=== PATIENT | male | born 1950 | race Caucasian/White ===

== ENCOUNTER 2019-12-18 05:27 | Emergency (ER) | payer MEDICARE, MEDICAID, SELFPAY ==
[2019-12-18 05:26] VITALS: BP 141/77; PULSE 74; RESP 16; TEMP 36.4; O2SAT 94; BMI 26.6
--- NOTE | 2019-12-18 05:40 | CT_ITS ---
PROCEDURE: CT ABDOMEN PELVIS W CON CLINICAL INDICATION: coffee ground emmisis COMPARISON: CT ABDPELW/O CT ABD PELVIS W/O CONTRAST from 09/06/2016 TECHNIQUE: IV Contrast: 75ML OPTIRAY 350 Oral Contrast None Axial images obtained with sagittal and coronal reformats. All CT scans at the facility use one or more dose reduction, viz: automated exposure control, ma/kV adjustment per patient size (including targeted exams where dose is matched to indication, i.e. head), or iterative reconstruction technique. FINDINGS: LOWER THORAX: There is a the 6 mm noncalcified nodule in the left lower lobe posterior laterally centrally. 6 mm nodule is present in the right lung base centrally. These areas may not have been covered on the previous abdomen CT. There were however other parenchymal opacities in the lower lobes which are no longer apparent. Motion artifact does obscure fine detail. Coronary artery calcifications are present ABDOMEN & PELVIS: The liver has an unremarkable appearance. This calcifications present in the portal region possibly due to stones in the cystic duct. The gallbladder does not appear distended. The spleen, adrenal glands, kidneys, and pancreas have an unremarkable appearance. No intestinal obstruction or free air. No evidence of appendicitis or diverticulitis. There is a small right inguinal hernia which contains fat. There is a mild amount of retained colonic feces. There are degenerative changes in the lumbar spine. IMPRESSION: 1. Suspect stones within the cystic duct. 2. Mild amount of retained colonic feces. 3. 6 mm nodule in right and left lower lobe. Six-month CT follow-up suggested. 4. Other nonacute findings as described above. Dictated by: Sherwin Turcios MD 12/18/2019 06:53 Sherwin Turcios MD in [place] 12/18/2019 06:53
[2019-12-18 05:54] LABS: Basophils % 0.2 % (0.1-2.0); Eosinophils # 0.1 K/mm3 (0.0-0.4); Eosinophils % 0.9 % (0.1-12.0); Hematocrit 38.4 % (42.0-52.0); Hemoglobin 12.3 g/dL (14.1-18.0); Lymphocytes # 1.4 K/mm3 (0.7-4.5); Lymphocytes % 14.3 % (10-50); Mean Corpuscular Hemoglobin 31.2 pg (27.0-31.2); Mean Corpuscular Volume 97.5 fl (80-94); Monocytes # 1.3 K/mm3 (0.1-1.0); Monocytes % 13.4 % (1.7-9.3); Neutrophils # 7.1 K/mm3 (1.8-7.8); Neutrophils % 71.1 % (37.0-80.0); Platelet Count 276 K/mm3 (142-424); Red Blood Count 3.94 M/mm3 (4.60-6.20); Red Cell Distribution Width 13.5 % (11.5-17.5)
[2019-12-18 05:57] LABS: Alanine Aminotransferase 22 U/L (12-78); Albumin Level 3.7 g/dl (3.5-5.0); Albumin/Globulin Ratio 1.1 (1.1-1.8); Alkaline Phosphatase 61 U/L (38-126); Anion Gap 11.3 mEq/L (5-15); Aspartate Amino Transferase 36 U/L (17-59); Bilirubin,Total 0.5 mg/dl (0.2-1.3); Blood Urea Nitrogen 18 mg/dl (9-20); Carbon Dioxide 25 mmol/L (22.0-30.0); Chloride 113 mmol/L (98-107); Creatinine Clearance Estimated 75 mL/min (50-200); Estimated Glomerular Filt Rate 112 ml/min (>60); GFR (African American) 136 ML/MIN (>60); Globulin 3.5 g/dL (1.3-3.2); Glucose 94 mg/dl (74-100); Potassium 4.3 mmoL/L (3.5-5.1); Sodium 145 mmol/L (136-145); Total Protein,Serum 7.2 g/dl (6.3-8.2)
[2019-12-18 06:02] LABS: C-Reactive Protein 11.8 mg/L (0-4)
--- NOTE | 2019-12-18 06:03 | HMH.EDNVD ---
ED Disposition Clinical Impression: Gastritis Qualifiers: Gastritis type: unspecified gastritis Chronicity: unspecified Gastritis bleeding: presence of bleeding unspecified Qualified Code(s): K29.70 - Gastritis, unspecified, without bleeding Disposition: Home, Self-Care Condition on Discharge: Fair Instructions: DI for Nausea -- Adult Additional Instructions: will arrange op egd for pt Referrals: PCP,No [Primary Care Provider] - - Critical Care Critical Care Time: No Attestation: On 12/18/19, the high probability of a clinically significant, sudden or life threatening deterioration of the following system(s) required my full and direct attention, intervention and personal management. The time I documented below is in addition to time spent performing reported procedures but includes the following listed in this critical care notation. Medical Decision Making - Medical Records Medical records reviewed: Yes: I reviewed the patient's medical records. - Eduardo Inquiry Pt receiving controlled substance: No Vital Signs: 12/18/19 05:26 12/18/19 06:30 12/18/19 07:00 Temperature 97.6 F Temperature Source Oral Pulse Rate [Left] 74 94 H 92 H Respiratory Rate 16 17 17 Blood Pressure [Right Arm] 141/77 H 122/75 138/74 Blood Pressure Mean [Right Arm] 98 90 95 Blood Pressure Source [Right Arm] Automatic Cuff Automatic Cuff Automatic Cuff Blood Pressure Position [Right Arm] Supine Supine Supine 02 Sat by Pulse Oximetry 94 L 95 95 Oxygen Delivery Method Room Air Room Air Room Air - Lab Data Lab results reviewed: Yes: I reviewed the patient's lab results. Lab Results 12/18/19 05:30: WBC 10.0, RBC 3.94 L, Hgb 12.3 L, Hct 38.4 L, MCV 97.5 H, MCH 31.2, MCHC 32.0, RDW 13.5, Plt Count 276, MPV 8.0, Neut % (Auto) 71.1, Lymph % (Auto) 14.3, [place] % (Auto) 13.4 H, Eos % (Auto) 0.9, Baso % (Auto) 0.2, Neut # (Auto) 7.1, Lymph # (Auto) 1.4, [place] # (Auto) 1.3 H, Eos # (Auto) 0.1, Baso # (Auto) 0.0, ESR 16 12/18/19 05:30: Sodium 145, Potassium 4.3, Chloride 113 H, Carbon Dioxide 25, Anion Gap 11.3, BUN 18, Creatinine 0.70, Estimated Creat Clear 75, Estimated GFR 112, Est GFR ( Amer) 136, Glucose 94, Calcium 8.0 L, Total Bilirubin 0.5, AST 36, ALT 22, Alkaline Phosphatase 61, C-Reactive Protein 11.8 H, Total Protein 7.2, Albumin 3.7, Globulin 3.5 H, Albumin/Globulin Ratio 1.1 Result diagrams: 12/18/19 05:30 12/18/19 05:30 Orders (Tests/Meds): ED MEDICATIONS Generic Name Dose Route Start Last Admin Trade Name Freq PRN Reason Stop Dose Admin Pantoprazole Sodium 80 mg/ 100 mls @ 10 mls/hr 12/18/19 06:42 12/18/19 05:56 Sodium Chloride IV 12/21/19 06:41 Not Given .Q10H JACKELIN Discontinued Medications Generic Name Dose Route Start Last Admin Trade Name Freq PRN Reason Stop Dose Admin Sodium Chloride 1,000 mls @ 999 mls/hr 12/18/19 05:45 12/18/19 05:56 Sod Chlor 0.9% 1000ml Bag IV 12/18/19 06:45 999 mls/hr .Q1H1M JACKELIN Administration Pantoprazole Sodium 80 mg/ 100 mls @ 100 mls/hr 12/18/19 05:40 12/18/19 05:56 Sodium Chloride IV 12/18/19 06:39 100 mls/hr ONCE ONE Administration Ioversol 75 ml 12/18/19 06:38 12/18/19 06:39 Ioversol-350 (74%) 100ml Vial IV 12/18/19 06:39 75 ml ONCE ONE Administration Protocol Sodium Chloride 10 ml 12/18/19 06:38 12/18/19 06:39 Sodium Chloride 0.9% 10ml Syr (Rad Only) IV 12/18/19 06:39 10 ml ONCE ONE Administration - CT Data CT Scan: Abdomen, Pelvis Time Received: 07:[address] Reviewed: Yes: I have viewed the radiologist's interpretation Preliminary Findings: Abnormal (see report ) Nausea/Vomiting/Diarrhea HPI - General Chief complaint: Nausea/Vomiting/Diarrhea Stated complaint: coffee ground emesis Time Seen by Provider: 12/18/19 05:50 Mode of Arrival: EMS Source of Information: Patient, EMS, Medical Record Limitations: Physical Limitations Description of Symptoms (Recalled from ER Triage Doc. by RN): Nursing
[2019-12-18 06:21] LABS: Erythrocyte Sedimentation Rate 16 mm/hr (0-20)
[2019-12-18 06:30] VITALS: BP 122/75; PULSE 94; RESP 17; O2SAT 95
[2019-12-18 07:00] VITALS: BP 138/74; PULSE 92; RESP 17; O2SAT 95
--- NOTE | 2019-12-18 08:08 | PC.NURSE ---
Report called to Yajaira at [facility]. Awaiting transfer back to facility at this time
--- NOTE | 2019-12-18 08:59 | PC.NURSE ---
Nicanor here for pt transport to [facility].
[2019-12-18 09:00] VITALS: BP 133/71; PULSE 88; RESP 17; TEMP 36.6; O2SAT 95
== END 2019-12-18 09:47 | disposition home or self-care (01) ==
PROVIDERS: Emergency Provider Emergency Medicine
DX: K29.70 Gastritis, unspecified, without bleeding (principal); F41.9 Anxiety disorder, unspecified; J44.9 Chronic obstructive pulmonary disease, unspecified; K21.9 Gastro-esophageal reflux disease without esophagitis; E78.5 Hyperlipidemia, unspecified; R56.9 Unspecified convulsions; Z20.828 Contact with and (suspected) exposure to other viral communicable diseases; Z79.899 Other long term (current) drug therapy
CPT/HCPCS: 74177; 80053; 85025; 85651; 86140; 96365; 96367; 99284; Q9967

== ENCOUNTER 2019-12-25 10:05 | Observation (INO) | payer MEDICARE, MEDICAID, SELFPAY ==
[2019-12-25] VITALS (11 sets, daily range): BP systolic 116–167; BP diastolic 75–93; PULSE 112–130; RESP 17–26; TEMP 36.8–37.4; O2SAT 89–94; BMI 24.3; BMI 21.2
--- NOTE | 2019-12-25 10:08 | XR_ITS ---
PROCEDURE: XR CHEST PORTABLE CLINICAL HISTORY: low O2 sat COMPARISON: CR CXR CHEST(2 VIEWS-NOT PORTABLE) from 09/18/2013 CR CXR1 CHEST-PORTABLE from 09/06/2016 CR CXR1 CHEST-PORTABLE from 09/07/2016 FINDINGS: The cardiomediastinal silhouette and pulmonary vascularity are within normal limits. The lungs are clear without infiltrates, suspicious nodules, or pleural effusions. Calcified granuloma is present in the left upper lobe. There are old right-sided rib fractures. IMPRESSION: No acute findings. Dictated by: Sherwin Turcios MD 12/25/2019 10:55 Sherwin Turcios MD in [place] 12/25/2019 10:55
[2019-12-25 10:30] LABS: Basophils # 0.1 K/mm3 (0-0.2); Basophils % 0.4 % (0.1-2.0); Eosinophils # 0.2 K/mm3 (0.0-0.4); Eosinophils % 1.4 % (0.1-12.0); Hematocrit 46.4 % (42.0-52.0); Hemoglobin 15.4 g/dL (14.1-18.0); Lymphocytes % 5.9 % (10-50); Mean Corpuscular HGB Conc 33.1 g/dL (31.8-35.4); Mean Corpuscular Hemoglobin 32.2 pg (27.0-31.2); Mean Corpuscular Volume 97.3 fl (80-94); Mean Platelet Volume 7.7 fl (7.4-10.4); Monocytes # 0.7 K/mm3 (0.1-1.0); Monocytes % 4.3 % (1.7-9.3); Neutrophils # 14.2 K/mm3 (1.8-7.8); Neutrophils % 87.9 % (37.0-80.0); Platelet Count 392 K/mm3 (142-424); Red Blood Count 4.77 M/mm3 (4.60-6.20); Red Cell Distribution Width 13.8 % (11.5-17.5); White Blood Count 16.2 K/mm3 (4.8-10.8)
--- NOTE | 2019-12-25 10:30 | HMH.EDGENADL ---
ED Disposition Clinical Impression: Pyelonephritis Disposition: Admitted As Inpatient Condition on Discharge: Good - Critical Care Critical Care Time: No Attestation: On 12/25/19, the high probability of a clinically significant, sudden or life threatening deterioration of the following system(s) required my full and direct attention, intervention and personal management. The time I documented below is in addition to time spent performing reported procedures but includes the following listed in this critical care notation. Medical Decision Making - Medical Records Medical records reviewed: Yes: I reviewed the patient's medical records. - Eduardo Inquiry Pt receiving controlled substance: No Vital Signs: 12/25/19 10:05 12/25/19 10:43 12/25/19 11:16 Temperature 98.3 F Temperature Source Rectal Pulse Rate Pulse Rate [Apical] Pulse Rate [Right] 121 H 117 H 113 H Respiratory Rate 26 H Blood Pressure Blood Pressure [Right Arm] 154/93 H 129/77 148/82 H Blood Pressure Mean [Right Arm] 113 94 104 Blood Pressure Source [Right Arm] Automatic Cuff Automatic Cuff Blood Pressure Position [Right Arm] Sitting Sitting 02 Sat by Pulse Oximetry 89 L 89 L 92 L Oxygen Delivery Method Room Air Room Air Nasal Cannula Oxygen Flow Rate (LPM) 2 12/25/19 11:30 12/25/19 12:00 12/25/19 12:30 Temperature Temperature Source Pulse Rate Pulse Rate [Apical] Pulse Rate [Right] 114 H 112 H 117 H Respiratory Rate 24 23 Blood Pressure Blood Pressure [Right Arm] 131/81 140/78 147/84 H Blood Pressure Mean [Right Arm] 97 98 105 Blood Pressure Source [Right Arm] Blood Pressure Position [Right Arm] 02 Sat by Pulse Oximetry 93 L 93 L 94 L Oxygen Delivery Method Nasal Cannula Nasal Cannula Nasal Cannula Oxygen Flow Rate (LPM) 2 2 12/25/19 13:00 12/25/19 13:09 Temperature 98.7 F 98.3 F Temperature Source Oral Pulse Rate 112 H Pulse Rate [Apical] 121 H Pulse Rate [Right] 121 H Respiratory Rate 22 22 Blood Pressure 145/87 H Blood Pressure [Right Arm] 167/82 H Blood Pressure Mean [Right Arm] 110 Blood Pressure Source [Right Arm] Automatic Cuff Blood Pressure Position [Right Arm] Supine 02 Sat by Pulse Oximetry 93 L Oxygen Delivery Method Room Air Oxygen Flow Rate (LPM) 2 - Lab Data Lab results reviewed: Yes: I reviewed the patient's lab results. Lab Results 12/25/19 10:19: WBC 16.2 H, RBC 4.77, Hgb 15.4, Hct 46.4, MCV 97.3 H, MCH 32.2 H, MCHC 33.1, RDW 13.8, Plt Count 392, MPV 7.7, Neut % (Auto) 87.9 H, Lymph % (Auto) 5.9 L, [place] % (Auto) 4.3, Eos % (Auto) 1.4, Baso % (Auto) 0.4, Neut # (Auto) 14.2 H, Lymph # (Auto) 1.0, [place] # (Auto) 0.7, Eos # (Auto) 0.2, Baso # (Auto) 0.1, Total Counted 100, Neutrophils % (Manual) 87 H, Lymphocytes % (Manual) 7 L, Monocytes % (Manual) 5, Eosinophils % (Manual) 1, Platelet Estimate Normal, RBC Morphology Normal 12/25/19 10:19: Lactate 1.4 12/25/19 10:19: Stool Occult Blood Negative 12/25/19 10:34: Sodium 142, Potassium 4.0, Chloride 106, Carbon Dioxide 28, Anion Gap 12.0, BUN 21 H, Creatinine 0.70, Estimated Creat Clear 73, Estimated GFR 112, Est GFR ( Amer) 136, Glucose 149 H, Calcium 9.4, Total Bilirubin 0.3, AST 27, ALT 20, Alkaline Phosphatase 92, Troponin I < 0.01, Total Protein 8.0, Albumin 4.2, Globulin 3.8 H, Albumin/Globulin Ratio 1.1 12/25/19 10:43: Urine Color Yellow, Urine Appearance Clear, Urine pH 8.0, Ur Specific [place] 1.015, Urine Protein Negative, Urine Glucose (UA) Negative, Urine Ketones Negative, Urine Blood Negative, Urine Nitrate Negative, Urine Bilirubin Negative, Urine Urobilinogen 1.0, Ur Leukocyte Esterase Negative, Urine RBC Occasional, Urine WBC 10-20, Ur Squamous Epith Cells Occasional, Urine Bacteria Trace 12/25/19 10:55: PT 11.4, INR 1.03, APTT 26.8 12/25/19 10:55: Blood Type A Negative, Antibody Screen Negative 12/25/19 10:55: SARS-CoV-2 IgG Ab (Rapid) Negative, SARS-CoV-2 IgM Ab (Rapid) Negative 12/25/19 11:05: [facility] pH
--- NOTE | 2019-12-25 10:30 | PC.NURSE ---
Pt's daughter called [employer] and gives consent to treat pt
[2019-12-25 10:33] LABS: MANUAL DIFFERENTIAL MANUAL DIFFERENTIAL (MANUAL DIFF)
--- NOTE | 2019-12-25 10:35 | PC.NURSE ---
Rad at bedside
[2019-12-25 10:38] LABS: Lactic Acid 1.4 mmol/L (0.7-2.1); Occult Blood,Stool Negative (Negative)
--- NOTE | 2019-12-25 10:38 | INFXCTL.NOTE ---
RT at bedside
[2019-12-25 10:46] LABS: Chloride 106 mmol/L (98-107); Sodium 142 mmol/L (136-145)
[2019-12-25 10:48] LABS: Blood Urea Nitrogen 21 mg/dl (9-20); Creatinine Clearance Estimated 73 mL/min (50-200); Estimated Glomerular Filt Rate 112 ml/min (>60); GFR (African American) 136 ML/MIN (>60)
[2019-12-25 10:49] LABS: Alanine Aminotransferase 20 U/L (12-78); Albumin Level 4.2 g/dl (3.5-5.0); Albumin/Globulin Ratio 1.1 (1.1-1.8); Alkaline Phosphatase 92 U/L (38-126); Aspartate Amino Transferase 27 U/L (17-59); Bilirubin,Total 0.3 mg/dl (0.2-1.3); Calcium 9.4 mg/dl (8.4-10.2); Carbon Dioxide 28 mmol/L (22.0-30.0); Globulin 3.8 g/dL (1.3-3.2); Glucose 149 mg/dl (74-100)
[2019-12-25 11:02] LABS: Eosinophils % 1 % (0-3); Lymphocytes % 7 % (10-50); Monocytes % 5 % (2-9); Neutrophils % 87 % (42-76); Total Cells Counted 100
[2019-12-25 11:03] LABS: Platelet Estimate Normal; RBC Morphology Normal
[2019-12-25 11:03] LABS: Troponin I < 0.01 ng/ml (0.00-0.034)
[2019-12-25 11:09] LABS: VBG HCO3 24.5 mmol/L (23-30); VBG Oxygen Saturation 94.7 % (50-70); VBG PCO2 38.9 mmol/L (35-51); VBG PH 7.42 mmol/L (7.31-7.41); VBG PO2 70.8 mmol/L (28-40); VBG Total CO2 25.7 mmol/L (23-27)
--- NOTE | 2019-12-25 11:13 | ECG_ITS ---
APPROVED REPORT Exam: Resting ECG HR:111 bpm ECG Measurements Heart Rate 111 AXES WA 136 P 76 QRSd 70 QRS 71 QT 312 T 93 QTc 424 Conclusion Sinus tachycardia Nonspecific ST and T wave abnormality Abnormal ECG Electronically signed by : Bernardino Koehler, 12/29/2019 11:31:21
[2019-12-25 11:25] LABS: Microscopic, Urine URINE MICROSCOPIC (MICROSCOPIC)
[2019-12-25 11:27] LABS: Appearance,Urine CLEAR (Clear); Bilirubin,Urine Negative (Negative); Blood, Urine Negative (Negative); Color,Urine YELLOW (Yellow); Glucose,Urine (UA) Negative (Negative); Ketones,Urine Negative (Negative); Leukocyte Esterase,Urine Negative (Negative); Nitrate,Urine Negative (Negative); Protein,Urine Negative (Negative); Specific Gravity, Urine 1.015 (1.005-1.030)
[2019-12-25 11:32] LABS: Activated Partial Thrombo Time 26.8 seconds (23.6-34.0); INR 1.03 (0.9-1.1); Prothrombin Time 11.4 seconds (9.4-11.8)
[2019-12-25 11:39] LABS: Bacteria,Urine Trace /lpf; RBC,Urine Occasional #/hpf (0-3); Squamous Epithelial Cell,Urine Occasional #/hpf (0-5)
--- NOTE | 2019-12-25 11:58 | PC.NURSE ---
speaking to dr Jerome
--- NOTE | 2019-12-25 12:00 | PC.NURSE ---
Neus agreed to admit, notifying CM of pt admission.
[2019-12-25 12:08] LABS: Coronavirus 19 IgG Antibody Negative (Negative); Coronavirus 19 IgM Antibody Negative (Negative)
--- NOTE | 2019-12-25 12:31 | P.CONPHA_ITS ---
[facility] Pharmacy VTE Monitoring - Patient Demographics Admission date: 12/25/19 Report Date: 12/25/19 Time: 12:31 Allergies/Adverse Reactions: Patient Allergies No Known Allergies Allergy (Verified 11/12/19 13:16) Height: 1.73 m Weight: 72.575 kg Patient Problems: Current Active Problems Pyelonephritis (Acute) - VTE Risk Labs: VTE Related Lab Results Hgb 15.4 g/dL (14.1-18.0) 12/25/19 10:19 Hct 46.4 % (42.0-52.0) 12/25/19 10:19 Plt Count 392 K/mm3 (142-424) 12/25/19 10:19 PT 11.4 seconds (9.4-11.8) 12/25/19 10:55 INR 1.03 (0.9-1.1) 12/25/19 10:55 APTT 26.8 seconds (23.6-34.0) 12/25/19 10:55 BUN 21 mg/dl (9-20) H 12/25/19 10:34 Creatinine 0.70 mg/dl (0.66-1.25) 12/25/19 10:34 Estimated Creat Clear 73 mL/min (50-200) 12/25/19 10:34 Clinical Trial Participant: No - Prophylaxis VTE Prophylaxis Ordered?: Yes Types of VTE Prophylaxis: TEDS Knee High
--- NOTE | 2019-12-25 13:21 | HMH.PHAINT ---
clarified home medication list using [facility]
[2019-12-25 14:23] LABS: Troponin I < 0.01 ng/ml (0.00-0.034)
[2019-12-25 15:20] LABS: Basophils % 0.3 % (0.1-2.0); Eosinophils # 0.2 K/mm3 (0.0-0.4); Hematocrit 47.6 % (42.0-52.0); Hemoglobin 15.8 g/dL (14.1-18.0); Lymphocytes # 0.9 K/mm3 (0.7-4.5); Lymphocytes % 5.6 % (10-50); Mean Corpuscular HGB Conc 33.3 g/dL (31.8-35.4); Mean Corpuscular Hemoglobin 32.3 pg (27.0-31.2); Mean Platelet Volume 7.5 fl (7.4-10.4); Monocytes # 0.9 K/mm3 (0.1-1.0); Monocytes % 5.7 % (1.7-9.3); Neutrophils # 13.5 K/mm3 (1.8-7.8); Neutrophils % 87.4 % (37.0-80.0); Platelet Count 385 K/mm3 (142-424); Red Blood Count 4.91 M/mm3 (4.60-6.20); Red Cell Distribution Width 13.8 % (11.5-17.5); White Blood Count 15.5 K/mm3 (4.8-10.8)
--- NOTE | 2019-12-25 17:38 | PC.NURSE ---
Pt was a new admit this shift from the ER with Pyelonephritis. Pt is a resident of [facility]. Pt is non-verbal the majority of the time, although occasional spontaneous speech is noted. Pt doesn't appear to be in any distress or pain. Daughter/POA is at bedside and medical history was obtained via her and the medical record. Pt is receiving O2 via NC @ 2 LPM with sats. >90%. Lung sounds reveal expiratory rhonchi and wheezing throughout. Skin is C/D/I. No edema noted. F/C is patent and draining clear, dark, yellow urine at bedside to gravity. No BM this shift. UMANG hose in place to BLE. Pt has been turned/repositioned and received oral care Q2H this shift. 18 G peripheral IV in the LT forearm is patent and SL. VSS. Call light within reach. Will continue to monitor.
--- NOTE | 2019-12-25 18:26 | HMH.HP ---
*Admission Date: 12/25/19 *History of present illness: This is a 69-year-old male with a history of dementia and previous hemorrhagic stroke presenting from outside snf with concern for hematemesis. Patient reportedly was scheduled for an EGD today for recent coffee-ground emesis which also occurred last night. Patient reportedly vomited during transport here and there is concern for possible aspiration. Patient is essentially nonverbal so further history is unobtainable 69-year-old nonverbal male presenting for evaluation of vomiting. Nontoxic, afebrile, hemodynamically stable. Requiring 2 L by nasal cannula for oxygenation. Benign abdominal exam. Urinalysis shows infection and white blood cell count is 16,000. This is likely pyelonephritis and he was given IV Rocephin for this. Blood cultures were obtained. There is also concern for possible aspiration so chest x-ray was obtained but this was negative for acute disease. Is also concern for possible GI bleed with recent reported hematemesis. We obtain a Hemoccult today which was negative. His coags are nonactionable. Glucose, electrolytes, transaminases are nonactionable. Will admit the patient for IV antibiotics to medicine service with a diagnosis of pyelonephritis. Patient remained stable in the ED I spoke with the daughter this evening in the room. She understands the elevated white count and that the likely etiology is a UTI. She is his power of explosive technician and agrees to DNR status. Because of the Hemoccult negative status and normal hemoglobin we will defer plans for EGD at present. We will start IV Protonix and follow sequential hemoglobin. His abdomen is benign. [facility] History Medical History: Reports:: Anxiety, Chronic Obstructive Pulmonary Disease (COPD), Coronary Artery Disease, Cerebrovascular Accident, Gastroesophageal Reflux Disease(GERD), Hyperlipidemia, Seizures Denies:: Cancer, Diabetes Mellitus Type 1, Diabetes Mellitus Type 2, Internal Pacemaker, MRSA *Have you ever received a pneumonia vaccine?: Yes *Have you received a flu vaccine this season?: No Other Medical History: Reports: Anemia Other Surgeries: No: Pacemaker Amputation: No - *Social History Smoking Status: Never smoker Alcohol Intake: never *Occupational Status:: disabled Housing: snf *Travel in the last 8 weeks: None - Psychiatric History Pschychiatric History:: Reports:: Anxiety Family Hx:: Unable to obtain Review of Systems - Review of Systems Review of systems:: unable to obtain Meds Home Medications Medication Instructions Recorded Confirmed Type aspirin 81 mg tablet,delayed 81 mg PO DAILY tab 04/13/17 12/25/19 History release famotidine 20 mg tablet 20 mg PO BID 04/13/17 12/25/19 History levetiracetam 750 mg tablet 750 mg PO Q12H 04/13/17 12/25/19 History donepezil 10 mg tablet 10 mg PO HS 03/15/18 12/25/19 History simvastatin 40 mg tablet 40 mg PO HS 03/15/18 12/25/19 History lactulose 10 gram/15 mL (15 mL) 20 gm PO DAILYP PRN ml 11/14/18 12/25/19 History oral solution sennosides 8.6 mg tablet 8.6 mg PO DAILY PRN tab 11/14/18 12/25/19 History Divalproex Sodium [Depakote 250 mg PO BID 12/18/19 12/25/19 History Sprinkle 125mg capsule] OLANZapine [Olanzapine] 10 mg PO DAILY 12/18/19 12/25/19 History Acetaminophen [Acetaminophen 325mg 650 mg PO Q6HP PRN 12/25/19 12/25/19 History tab] Docusate Sodium [Stool Softener] 250 mg PO DAILY 12/25/19 12/25/19 History Multivitamin/Iron/Folic Acid 1 each PO DAILY 12/25/19 12/25/19 History [Multivitamin with Iron Tablet] Allergies Allergy/AdvReac Type Severity Reaction Status Date / Time No Known Allergies Allergy Verified 11/12/19 13:16 Exam Vital signs and Labs for Last 24 Hours: Temp Pulse Resp BP Pulse Ox 99.2 F 123 H 17 116/75 93 L 12/25/19 16:00 12/25/19 16:00 12/25/19 16:00 12/25/19 16:00 12/25/19 16:00 Laboratory Results - last 24 hr 12/25/19 10:19: WBC 16.2 H
--- NOTE | 2019-12-25 19:09 | PC.NURSE ---
report given to zoraida
[2019-12-26] VITALS: PULSE 115
[2019-12-26 03:51] VITALS: BP 136/70; PULSE 113; RESP 20; TEMP 37.2; O2SAT 92
[2019-12-26 05:05] VITALS: BMI 21.3
--- NOTE | 2019-12-26 05:53 | PC.NURSE ---
shift summary, pt has rested well t/o shift, no acute changes this shift, pt is nonverbal except for the occasional spontaneous speech, appears to be in no distress or in any pain, remains on 2L NC with O2 sats 91-92%, inspiratory and expiratory wheezes noted t/o on auscultation, has remained afebrile, magana catheter is patent and draining clear, dark yellow urine
[2019-12-26 06:37] LABS: Basophils % 0.3 % (0.1-2.0); Eosinophils # 0.2 K/mm3 (0.0-0.4); Eosinophils % 1.3 % (0.1-12.0); Hematocrit 37.7 % (42.0-52.0); Lymphocytes # 1.7 K/mm3 (0.7-4.5); Lymphocytes % 11.6 % (10-50); Mean Corpuscular Hemoglobin 31.9 pg (27.0-31.2); Mean Corpuscular Volume 96.8 fl (80-94); Mean Platelet Volume 7.1 fl (7.4-10.4); Monocytes # 1.2 K/mm3 (0.1-1.0); Monocytes % 8.2 % (1.7-9.3); Neutrophils # 11.2 K/mm3 (1.8-7.8); Neutrophils % 78.5 % (37.0-80.0); Platelet Count 330 K/mm3 (142-424); Red Blood Count 3.89 M/mm3 (4.60-6.20); Red Cell Distribution Width 13.9 % (11.5-17.5); White Blood Count 14.3 K/mm3 (4.8-10.8)
[2019-12-26 06:43] LABS: Chloride 110 mmol/L (98-107)
[2019-12-26 06:44] LABS: Potassium 3.8 mmoL/L (3.5-5.1); Sodium 142 mmol/L (136-145)
[2019-12-26 06:47] LABS: Anion Gap 10.8 mEq/L (5-15); Blood Urea Nitrogen 17 mg/dl (9-20); Carbon Dioxide 25 mmol/L (22.0-30.0); Creatinine Clearance Estimated 58 mL/min (50-200); Estimated Glomerular Filt Rate 96 ml/min (>60); GFR (African American) 116 ML/MIN (>60); Glucose 108 mg/dl (74-100)
[2019-12-26 07:46] LABS: Hemoglobin 12.4 g/dL (14.1-18.0)
[2019-12-26 07:51] LABS: Calcium 8.3 mg/dl (8.4-10.2)
[2019-12-26 07:56] VITALS: BP 141/78; PULSE 110; RESP 18; TEMP 36.6; O2SAT 90
--- NOTE | 2019-12-26 09:40 | HMH.ACPN2 ---
Internal Medicine - PN: Subj *Date: 12/26/19 *Time: 16:19 Interval history: 69-year-old male patient lying in bed resting quietly, no apparent distress noted. Patient is nonverbal abdomen soft, no reaction from patient when palpated. With drop of HGB from 15.8 to 12.4 will consult Gen surgery regarding EGD, continue DNR status. Exam Vital signs and Labs for Last 24 Hours: Temp Pulse Resp BP Pulse Ox 97.9 F 110 H 18 141/78 H 90 L 12/26/19 07:56 12/26/19 07:56 12/26/19 07:56 12/26/19 07:56 12/26/19 07:56 Laboratory Results - last 24 hr 12/25/19 10:19: WBC 16.2 H, RBC 4.77, Hgb 15.4, Hct 46.4, MCV 97.3 H, MCH 32.2 H, MCHC 33.1, RDW 13.8, Plt Count 392, MPV 7.7, Neut % (Auto) 87.9 H, Lymph % (Auto) 5.9 L, [place] % (Auto) 4.3, Eos % (Auto) 1.4, Baso % (Auto) 0.4, Neut # (Auto) 14.2 H, Lymph # (Auto) 1.0, [place] # (Auto) 0.7, Eos # (Auto) 0.2, Baso # (Auto) 0.1, Total Counted 100, Neutrophils % (Manual) 87 H, Lymphocytes % (Manual) 7 L, Monocytes % (Manual) 5, Eosinophils % (Manual) 1, Platelet Estimate Normal, RBC Morphology Normal 12/25/19 10:19: Lactate 1.4 12/25/19 10:19: Stool Occult Blood Negative 12/25/19 10:34: Sodium 142, Potassium 4.0, Chloride 106, Carbon Dioxide 28, Anion Gap 12.0, BUN 21 H, Creatinine 0.70, Estimated Creat Clear 73, Estimated GFR 112, Est GFR ( Amer) 136, Glucose 149 H, Calcium 9.4, Total Bilirubin 0.3, AST 27, ALT 20, Alkaline Phosphatase 92, Troponin I < 0.01, Total Protein 8.0, Albumin 4.2, Globulin 3.8 H, Albumin/Globulin Ratio 1.1 12/25/19 10:43: Urine Color Yellow, Urine Appearance Clear, Urine pH 8.0, Ur Specific [place] 1.015, Urine Protein Negative, Urine Glucose (UA) Negative, Urine Ketones Negative, Urine Blood Negative, Urine Nitrate Negative, Urine Bilirubin Negative, Urine Urobilinogen 1.0, Ur Leukocyte Esterase Negative, Urine RBC Occasional, Urine WBC 10-20, Ur Squamous Epith Cells Occasional, Urine Bacteria Trace 12/25/19 10:55: PT 11.4, INR 1.03, APTT 26.8 12/25/19 10:55: Blood Type A Negative, Antibody Screen Negative 12/25/19 10:55: SARS-CoV-2 IgG Ab (Rapid) Negative, SARS-CoV-2 IgM Ab (Rapid) Negative 12/25/19 11:05: VBG pH 7.42 H, VBG pCO2 38.9, VBG pO2 70.8 H, VBG HCO3 24.5, VBG Total CO2 25.7, VBG O2 Saturation 94.7 H, VBG Base Excess 0.0 12/25/19 14:00: Troponin I < 0.01 12/25/19 15:05: WBC 15.5 H, RBC 4.91, Hgb 15.8, Hct 47.6, MCV 97.0 H, MCH 32.3 H, MCHC 33.3, RDW 13.8, Plt Count 385, MPV 7.5, Neut % (Auto) 87.4 H, Lymph % (Auto) 5.6 L, [place] % (Auto) 5.7, Eos % (Auto) 1.0, Baso % (Auto) 0.3, Neut # (Auto) 13.5 H, Lymph # (Auto) 0.9, [place] # (Auto) 0.9, Eos # (Auto) 0.2, Baso # (Auto) 0.0 12/26/19 06:28: WBC 14.3 H, RBC 3.89 L, Hgb 12.4 L D, Hct 37.7 L, MCV 96.8 H, MCH 31.9 H, MCHC 33.0, RDW 13.9, Plt Count 330, MPV 7.1 L, Neut % (Auto) 78.5, Lymph % (Auto) 11.6, [place] % (Auto) 8.2, Eos % (Auto) 1.3, Baso % (Auto) 0.3, Neut # (Auto) 11.2 H, Lymph # (Auto) 1.7, [place] # (Auto) 1.2 H, Eos # (Auto) 0.2, Baso # (Auto) 0.0 12/26/19 06:28: Sodium 142, Potassium 3.8, Chloride 110 H, Carbon Dioxide 25, Anion Gap 10.8, BUN 17, Creatinine 0.80, Estimated Creat Clear 58, Estimated GFR 96, Est GFR ( Amer) 116, Glucose 108 H D, Calcium 8.3 L D I & O for Last 24 hours: Intake & Output 12/23/19 12/24/19 12/25/19 12/26/19 23:59 23:59 23:59 23:59 Intake Total 500 / 500 1364 / 1364 Output Total 400 / 400 Balance 500 / 500 964 / 964 Weight 127 lb 9 oz 128 lb 2 oz - Constitutional chronically ill appearing - *Routine HEENT Exam Head: Present: normocephalic ENT: Present: mucous membranes moist - *Routine Neck Exam Present: trachea midline. Absent: tracheal deviation - *Routine Respiratory Exam Present: rhonchi. Absent: accessory muscle use - *Routine Cardiovascular Exam Present: RRR - *Routine Abdominal Exam Present: soft, normoactive bowel sounds. Absent: tenderness - *Routine Extremities Exam Present: pulses intact. Absent: edema, calf tenderness - *Routi
--- NOTE | 2019-12-26 13:37 | SW/DCPLANNER ---
Addendum entered by Charla Bailey 12/27/19 14:53: COVID is negative and discharge summary is in computer. I have informed Stacy and nursing staff. Patient will discharge back to [facility] today. Addendum entered by Charla Bailey 12/27/19 09:51: Updates have been faxed to Stacy at [facility]. I have also spoke with Stacy regarding possible discharge today. COVID swab will be ordered prior to return. Original Note: This patient currently resides at [facility]. I have spoke with Stacy this morning and she has stated that this patient is currently [facility] level of care. I will continue to follow up with Stacy until patient is stable for discharge. Discharge date is unknown at this time. Stacy has stated that if patient is admitted for 3 midnights he will return under SNF level of care.
--- NOTE | 2019-12-26 14:17 | HMH.GSCON ---
*Admission Date: 12/25/19 *Reason for consult:: Possible GI bleeding *History of present illness: Patient is a 69-year-old aphasic noncommunicative with history of previous cerebrovascular accident longterm patient. He had presented to the emergency department on 12/18/2019 after an episode of reported coffee[facility]ground emesis from [facility]. He was seen and evaluated in the emergency department at that time and his hemoglobin was 12. He was scheduled for outpatient upper endoscopy to be done by Dr. Scott Cotter on 12/25/2019. However, on the day of his planned procedure he presented to the emergency department with recurrent hematemesis and diagnosis of possible pyelonephritis. He was admitted yesterday. He was found to have Hemoccult negativity. Upper endoscopy was deferred. Surgical consultation was ordered this afternoon for consideration of EGD. Review of Systems - Review of Systems Review of systems:: unable to obtain [facility] History I have reviewed the patient's past medical history: Yes Medical History: Reports:: Anxiety, Chronic Obstructive Pulmonary Disease (COPD), Coronary Artery Disease, Cerebrovascular Accident, Gastroesophageal Reflux Disease(GERD), Hyperlipidemia, Seizures Denies:: Cancer, Diabetes Mellitus Type 1, Diabetes Mellitus Type 2, Internal Pacemaker, MRSA *Have you ever received a pneumonia vaccine?: Yes *Have you received a flu vaccine this season?: No Other Medical History: Reports: Anemia Other Surgeries: No: Pacemaker Amputation: No - *Social History Smoking Status: Never smoker Alcohol Intake: never *Occupational Status:: disabled Housing: longterm *Travel in the last 8 weeks: None - Psychiatric History Pschychiatric History:: Reports:: Anxiety Family Hx:: Unable to obtain [facility] Medications Medication Instructions Recorded Confirmed Type aspirin 81 mg tablet,delayed 81 mg PO DAILY tab 04/13/17 12/25/19 History release famotidine 20 mg tablet 20 mg PO BID 04/13/17 12/25/19 History levetiracetam 750 mg tablet 750 mg PO Q12H 04/13/17 12/25/19 History donepezil 10 mg tablet 10 mg PO HS 03/15/18 12/25/19 History simvastatin 40 mg tablet 40 mg PO HS 03/15/18 12/25/19 History lactulose 10 gram/15 mL (15 mL) 20 gm PO DAILYP PRN ml 11/14/18 12/25/19 History oral solution sennosides 8.6 mg tablet 8.6 mg PO DAILY PRN tab 11/14/18 12/25/19 History Divalproex Sodium [Depakote 250 mg PO BID 12/18/19 12/25/19 History Sprinkle 125mg capsule] OLANZapine [Olanzapine] 10 mg PO DAILY 12/18/19 12/25/19 History Acetaminophen [Acetaminophen 325mg 650 mg PO Q6HP PRN 12/25/19 12/25/19 History tab] Docusate Sodium [Stool Softener] 250 mg PO DAILY 12/25/19 12/25/19 History Multivitamin/Iron/Folic Acid 1 each PO DAILY 12/25/19 12/25/19 History [Multivitamin with Iron Tablet] Allergies Allergy/AdvReac Type Severity Reaction Status Date / Time No Known Allergies Allergy Verified 11/12/19 13:16 Exam Vital signs and Labs for Last 24 Hours: Temp Pulse Resp BP Pulse Ox 97.9 F 110 H 18 141/78 H 90 L 12/26/19 07:56 12/26/19 07:56 12/26/19 07:56 12/26/19 07:56 12/26/19 07:56 Laboratory Results - last 24 hr 12/25/19 14:00: Troponin I < 0.01 12/25/19 15:05: WBC 15.5 H, RBC 4.91, Hgb 15.8, Hct 47.6, MCV 97.0 H, MCH 32.3 H, MCHC 33.3, RDW 13.8, Plt Count 385, MPV 7.5, Neut % (Auto) 87.4 H, Lymph % (Auto) 5.6 L, [place] % (Auto) 5.7, Eos % (Auto) 1.0, Baso % (Auto) 0.3, Neut # (Auto) 13.5 H, Lymph # (Auto) 0.9, [place] # (Auto) 0.9, Eos # (Auto) 0.2, Baso # (Auto) 0.0 12/26/19 06:28: WBC 14.3 H, RBC 3.89 L, Hgb 12.4 L D, Hct 37.7 L, MCV 96.8 H, MCH 31.9 H, MCHC 33.0, RDW 13.9, Plt Count 330, MPV 7.1 L, Neut % (Auto) 78.5, Lymph % (Auto) 11.6, [place] % (Auto) 8.2, Eos % (Auto) 1.3, Baso % (Auto) 0.3, Neut # (Auto) 11.2 H, Lymph # (Auto) 1.7, [place] # (Auto) 1.2 H, Eos # (Auto) 0.2, Baso # (Auto) 0.0 12/26/19 06:28: Sodium 142, Potassium 3.8, Chloride 110 H, Carbon Sergio
[2019-12-26 15:32] VITALS: BP 127/71; PULSE 102; RESP 17; TEMP 37; O2SAT 94
[2019-12-26 18:17] VITALS: O2SAT 93
[2019-12-26 20:00] VITALS: BP 138/62; PULSE 100; RESP 20; TEMP 36.9; O2SAT 92
--- NOTE | 2019-12-26 20:07 | PC.NURSE ---
Addendum entered by Todd Pitts RN 12/26/19 20:11: crackles, Lasix IV Original Note: Pt has only spoken very few words this shift and mostly the word fu*k. Pt is unable to answer questions appropriately. VSS. This afternoon pt had increased cerackles throughout and wheezes. This nurse did call and make Dr. [place] information security officer aware at approx 1730 and he ordered to sl fluids and give 20 of lasix I. Pt has had good output since then. Appears comfortable at this time. Have turned and repositioned. Remains on 2 L NC. CB in reach. Called and received consent from [facility] for EGD tomorrow with Bebe Xiong RN. VSS. Remains safe,with seizure pads in place.
[2019-12-27] VITALS (17 sets, daily range): BP systolic 103–135; BP diastolic 59–75; PULSE 80–110; RESP 18–28; TEMP 36.2–37.2; O2SAT 92–96; BMI 21.0
--- NOTE | 2019-12-27 03:37 | PC.NURSE ---
Pt noted non-verbal t/o shift, occasionally will say okay or profanity words. No acute changes noted from previous shift. Pt has rested well with eyes closed thus far this shift. Q2H turn per staff, total dependency. Pt gets agitated easily when staff is attempting to turn him. Oral care provided with turns. PERRLA. Bilateral hand geotechnical intern noted with severe weakness, pt baseline. Bilateral lungs noted with coarse crackles, expiratory wheezes, and audible wheezes. No SOA noted, pt asymptomatic thus far. Croupy, non-productive cough noted intermittently. Tolerated 2 lnc well. Kept HOB elevated t/o shift, pt tolerated well. Adequate urine output noted, urine clear and bright/pale yellow in color. BM smear noted. Remains incontinent of bowel and bladder. FC site noted C/D/I. No edema noted. VSS. Remains safe. Call light within reach. Will continue to monitor.
[2019-12-27 06:47] LABS: Chloride 105 mmol/L (98-107); Potassium 3.6 mmoL/L (3.5-5.1); Sodium 139 mmol/L (136-145)
[2019-12-27 06:48] LABS: Basophils % 0.2 % (0.1-2.0); Eosinophils # 0.5 K/mm3 (0.0-0.4); Eosinophils % 4.4 % (0.1-12.0); Hemoglobin 12.6 g/dL (14.1-18.0); Lymphocytes # 2.2 K/mm3 (0.7-4.5); Lymphocytes % 19.3 % (10-50); Mean Corpuscular HGB Conc 33.2 g/dL (31.8-35.4); Mean Corpuscular Volume 96.5 fl (80-94); Mean Platelet Volume 7.1 fl (7.4-10.4); Monocytes % 8.5 % (1.7-9.3); Neutrophils # 7.8 K/mm3 (1.8-7.8); Neutrophils % 67.6 % (37.0-80.0); Platelet Count 349 K/mm3 (142-424); Red Blood Count 3.93 M/mm3 (4.60-6.20); Red Cell Distribution Width 13.7 % (11.5-17.5); White Blood Count 11.6 K/mm3 (4.8-10.8)
[2019-12-27 06:50] LABS: Anion Gap 10.6 mEq/L (5-15); Blood Urea Nitrogen 15 mg/dl (9-20); Calcium 8.6 mg/dl (8.4-10.2); Carbon Dioxide 27 mmol/L (22.0-30.0); Creatinine Clearance Estimated 57 mL/min (50-200); Estimated Glomerular Filt Rate 112 ml/min (>60); GFR (African American) 136 ML/MIN (>60); Glucose 99 mg/dl (74-100)
--- NOTE | 2019-12-27 08:08 | INFXCTL.NOTE ---
PT to EGD at approx 0710.
--- NOTE | 2019-12-27 08:10 | HMH.ANESCL ---
[facility] Anesthesia Checklist - Patient Identification Patient Identification: Arm Band, Verbal (Name & ) - Structural Data Admitted From: Inpatient Planned Operative Procedure/s: EGD Consent for Planned Operative Procedure(s) Verified: Yes Verified Documents: Surgical Consent, History and Physical - NPO Status Verified Time NPO: 00:00 - Chart Verification Results Verified: CBC, BMP, PT, PTT, INR - Additional verifications Anesthesia Reactions: No - Airway Assessment C-Spine Mobility Assessed: Yes TMJ Mobility Assessed: Yes Dentition: Poor Dentition - Neurological Assessment Level of Consciousness: Awake, Alert, Appropriate, Follows Commands Hx Seizures: Yes Numbness or tingling in extremities: No - Anesthesia Plan Anesthesia Risk discussed: Yes Anesthesia Plan: Verified ASA Class: IV Anesthesia Type: MAC [facility] History I have reviewed the patient's past medical history: Yes Medical History: Reports:: Anxiety, Chronic Obstructive Pulmonary Disease (COPD), Coronary Artery Disease, Cerebrovascular Accident, Gastroesophageal Reflux Disease(GERD), Hyperlipidemia, Seizures Denies:: Cancer, Diabetes Mellitus Type 1, Diabetes Mellitus Type 2, Internal Pacemaker, MRSA *Have you ever received a pneumonia vaccine?: Yes *Have you received a flu vaccine this season?: No Other Medical History: Reports: Anemia Anesthesia experience/problems:: None Other Surgeries: No: Pacemaker Amputation: No - *Social History Smoking Status: Never smoker Alcohol Intake: never Substance Use Type: denies use *Occupational Status:: disabled Housing: [facility] *Travel in the last 8 weeks: None - Psychiatric History Pschychiatric History:: Reports:: Anxiety Family Hx:: Unable to obtain
--- NOTE | 2019-12-27 08:27 | P.PCN_ITS ---
- Procedure: Date: 12/27/19 Patient Date of :: 1950 Procedure Performed:: Esophagogastroduodenoscopy with biopsy Indications:: Patient is a 69-year-old aphasic noncommunicative with history of previous cerebrovascular accident retirement patient. He had presented to the emergency department on 12/18/2019 after an episode of reported coffee-ground emesis from the [facility]. He was seen and evaluated in the emergency department at that time and his hemoglobin was 12. He was scheduled for outpatient upper endoscopy to be done by Dr. Scott Cotter on 12/25/2019. However, on the day of his planned procedure he presented to the emergency department with reported recurrent hematemesis and diagnosis of possible pyelonephritis. He was admitted. He was found to have Hemoccult negativity. Upper endoscopy was deferred. Surgical consultation was ordered yesterday afternoon for consideration of EGD. Performing Provider:: Caesar Zamora MD Referring Provider:: Ric Jerome MD Sedation:: MAC sedation Procedure:: Patient was taken to endoscopy procedure room. He was positioned in a lateral decubitus position. Adequate intravenous sedation was achieved. Olympus endoscope was inserted via the oropharynx advanced through the esophagus. Esophagus appeared normal. Gastroesophageal junction was encountered at approximately 40 cm from the incisors. Stomach was cannulated and insufflated. Retroflexion revealed very small hiatal hernia. There is some very subtle gastritis in the cardia. This was nonerosive. Overall gastric lumen appeared relatively unremarkable. Pylorus was traversed and the duodenal bulb and duodenal sweep are unremarkable. Endoscope was withdrawn into the stomach. Antral mucosal biopsy was obtained to assess for H. pylori. Stomach was desufflated and the endoscope was withdrawn. Findings:: Relatively unremarkable upper endoscopy other than very small sliding hiatal hernia and very subtle nonerosive gastritis. Recommendations:: Medical management Complications:: None Estimated blood obtained (mL): 1
[2019-12-27 10:32] LABS: Adenovirus,PCR Not Detected (NotDetected); Bordetella Pertussis Not Detected (NotDetected); Chlamydophila Pneumoniae, PCR Not Detected (NotDetected); Coronavirus 19, PCR Not Detected (NotDetected); Coronavirus 229E Not Detected (NotDetected); Coronavirus NL63 Not Detected (NotDetected); Coronavirus OC43 Not Detected (NotDetected); Coronovirus HKU1,PCR Not Detected (NotDetected); Human Metapneumovirus Not Detected (NotDetected); Influenza A, PCR Not Detected (NotDetected); Influenza AH1, 2009 Not Detected (NotDetected); Influenza AH1, PCR Not Detected (NotDetected); Influenza AH3,PCR Not Detected (NotDetected); Influenza B, PCR Not Detected (NotDetected); Mycoplasma Pneumoniae, PCR Not Detected (NotDetected); Parainfluenza 1, PCR Not Detected (NotDetected); Parainfluenza 2, PCR Not Detected (NotDetected); Parainfluenza 3, PCR Not Detected (NotDetected); Parainfluenza 4, PCR Not Detected (NotDetected); Respiratory Syncytial Virus Not Detected (NotDetected); Rhinovirus/Enterovirus Not Detected (NotDetected)
--- NOTE | 2019-12-27 11:57 | HMH.DCSUM ---
General - General Admission date:: 12/25/19 Discharge date: 12/27/19 HPI HPI: This is a 69-year-old male with a history of dementia and previous hemorrhagic stroke presenting from outside [facility] with concern for hematemesis. Patient reportedly was scheduled for an EGD today for recent coffee-ground emesis which also occurred last night. Patient reportedly vomited during transport here and there is concern for possible aspiration. Patient is essentially nonverbal so further history is unobtainable 69-year-old nonverbal male presenting for evaluation of vomiting. Nontoxic, afebrile, hemodynamically stable. Requiring 2 L by nasal cannula for oxygenation. Benign abdominal exam. Urinalysis shows infection and white blood cell count is 16,000. This is likely pyelonephritis and he was given IV Rocephin for this. Blood cultures were obtained. There is also concern for possible aspiration so chest x-ray was obtained but this was negative for acute disease. Is also concern for possible GI bleed with recent reported hematemesis. We obtain a Hemoccult today which was negative. His coags are nonactionable. Glucose, electrolytes, transaminases are nonactionable. Will admit the patient for IV antibiotics to medicine service with a diagnosis of pyelonephritis. Patient remained stable in the ED I spoke with the daughter this evening in the room. She understands the elevated white count and that the likely etiology is a UTI. She is his power of civil rights attorney and agrees to DNR status. Because of the Hemoccult negative status and normal hemoglobin we will defer plans for EGD at present. We will start IV Protonix and follow sequential hemoglobin. His abdomen is benign. Hospital Course Hospital Course: his is a 69-year-old male with a history of dementia and previous hemorrhagic stroke presenting from outside [facility] with concern for hematemesis. Patient reportedly was scheduled for an EGD today for recent coffee-ground emesis which also occurred last night. Patient reportedly vomited during transport here and there is concern for possible aspiration. Patient is essentially nonverbal so further history is unobtainable 69-year-old nonverbal male presenting for evaluation of vomiting. Nontoxic, afebrile, hemodynamically stable. Requiring 2 L by nasal cannula for oxygenation. Benign abdominal exam. Urinalysis shows infection and white blood cell count is 16,000. This is likely pyelonephritis and he was given IV Rocephin for this. Blood cultures were obtained. There is also concern for possible aspiration so chest x-ray was obtained but this was negative for acute disease. Is also concern for possible GI bleed with recent reported hematemesis. We obtain a Hemoccult today which was negative. His coags are nonactionable. Glucose, electrolytes, transaminases are nonactionable. Will admit the patient for IV antibiotics to medicine service with a diagnosis of pyelonephritis. Patient remained stable in the ED I spoke with the daughter this evening in the room. She understands the elevated white count and that the likely etiology is a UTI. She is his power of civil rights attorney and agrees to DNR status. Because of the Hemoccult negative status and normal hemoglobin we will defer plans for EGD at present. We will start IV Protonix and follow sequential hemoglobin. His abdomen is benign Per Dr. Jerome). After drop ion H/H, Gen Surg was consulted for referral and possible EGD. Today, WBC 11.6, Temp 99, will cont ATB x 4 day for full course. 12/25/19 CXR: FINDINGS: The cardiomediastinal silhouette and pulmonary vascularity are within normal limits. The lungs are clear without infiltrates, suspicious nodules, or pleural effusions. Calcified granuloma is present in the left upper lobe. There are old right-sided rib fractures. IMPRESSION: No acute findings. Dictated by: Tam Sethi Surgery Has seen and EGD: Patient was taken to end
--- NOTE | 2019-12-27 16:39 | PC.NURSE ---
Called report to DHRUV Kumar, and also called [facility] at [phone], they stated they would be here [facility] for transfer.
== END 2019-12-27 18:10 ==
LOC: ER 11:57 → 2ND 13:49
PROVIDERS: Nurse Practitioner Family; Surgery; Admitting Provider Family Medicine; Emergency Provider Physician Assistant; PCP Emergency Medicine; Visit Provider Family Medicine
PROC: 0DJ08ZZ Inspection of Upper Intestinal Tract, Via Natural or Artificial Opening Endoscopic (ICD-10-PCS; CPT 43235; principal; 2019-12-27 08:30)
DX: I69.391 Dysphagia following cerebral infarction (principal); N10 Acute pyelonephritis; Z79.899 Other long term (current) drug therapy; I69.320 Aphasia following cerebral infarction; R13.10 Dysphagia, unspecified; J44.9 Chronic obstructive pulmonary disease, unspecified; Z79.82 Long term (current) use of aspirin; G40.909 Epilepsy, unspecified, not intractable, without status epilepticus; I25.10 Atherosclerotic heart disease of native coronary artery without angina pectoris; K29.70 Gastritis, unspecified, without bleeding
CPT/HCPCS: 43239; 36415; 71045; 80048; 80053; 81001; 82272; 82803; 83605; 84484; 85007; 85025; 85610; 85730; 86328; 86850; 87040; 87086; 87581; 87633; 87798; 88305; 88342; 93005; 96365; 96367; 99285; G0328; G0378; U0003

== ENCOUNTER 2020-02-13 12:50 | Emergency (ER) | payer MEDICARE, MEDICAID, SELFPAY ==
--- NOTE | 2020-02-13 12:55 | HMH.EDGENADL ---
ED Disposition Clinical Impression: COPD (chronic obstructive pulmonary disease) Qualifiers: COPD type: unspecified COPD Qualified Code(s): J44.9 - Chronic obstructive pulmonary disease, unspecified Disposition: Xfer Intermediate Care Fac Condition on Discharge: Good Instructions: DI for Chronic Obstructive Pulmonary Disease Additional Instructions: Please return to facility. Patient may benefit from as needed O2 via nasal cannula and use of MDI (metered-dose inhaler). Please may return if any worsening respiratory effort, changes in mental status, increased wheezing, hypoxia, or other new concerning symptoms. Prescriptions: RX: Albuterol Sulfate [Proventil-HFA 90mcg/puff Inh] 1 - 2 puffs IH Q4HP PRN #1 inh PRN Reason: Wheezing Transmission Status: Pending to [employer] Referrals: PCP,No [Primary Care Provider] - - Critical Care Critical Care Time: No Attestation: On , the high probability of a clinically significant, sudden or life threatening deterioration of the following system(s) required my full and direct attention, intervention and personal management. The time I documented below is in addition to time spent performing reported procedures but includes the following listed in this critical care notation. Medical Decision Making - Medical Records Medical records reviewed: Yes: I reviewed the patient's medical records. - Eduardo Inquiry Pt receiving controlled substance: No Vital Signs: 02/13/20 12:57 02/13/20 13:17 02/13/20 13:34 Temperature 98.9 F Temperature Source Oral Pulse Rate [Right] 81 86 85 Respiratory Rate 16 Blood Pressure [Right Arm] 125/72 125/72 119/68 Blood Pressure Mean [Right Arm] 89 89 85 Blood Pressure Source [Right Arm] Automatic Cuff Automatic Cuff Automatic Cuff Blood Pressure Position [Right Arm] Sitting Sitting Sitting 02 Sat by Pulse Oximetry 97 97 97 Oxygen Delivery Method Nasal Cannula Room Air Room Air Oxygen Flow Rate (LPM) 02/13/20 14:14 02/13/20 15:34 Temperature Temperature Source Pulse Rate [Right] 76 88 Respiratory Rate Blood Pressure [Right Arm] 129/74 120/64 Blood Pressure Mean [Right Arm] 92 82 Blood Pressure Source [Right Arm] Automatic Cuff Automatic Cuff Blood Pressure Position [Right Arm] Sitting Sitting 02 Sat by Pulse Oximetry 98 96 Oxygen Delivery Method Nasal Cannula Nasal Cannula Oxygen Flow Rate (LPM) 2 2 - Lab Data Lab Results 02/13/20 13:10: WBC 4.4 L, RBC 4.66, Hgb 14.9, Hct 45.1, MCV 96.7 H, MCH 31.8 H, MCHC 32.9, RDW 13.6, Plt Count 317, MPV 7.7, Neut % (Auto) 51.2, Lymph % (Auto) 39.9, [place] % (Auto) 6.9, Eos % (Auto) 1.0, Baso % (Auto) 1.0, Neut # (Auto) 2.3, Lymph # (Auto) 1.8, [place] # (Auto) 0.3, Eos # (Auto) 0.1, Baso # (Auto) 0.0 02/13/20 13:10: Sodium 143, Potassium 3.8, Chloride 107, Carbon Dioxide 29, Anion Gap 10.8, BUN 18, Creatinine 0.70, Estimated Creat Clear 77, Estimated GFR 112, Est GFR ( Amer) 136, Glucose 115 H, Calcium 8.4, Troponin I < 0.01 02/13/20 13:10: NT-Pro-B Natriuret Pep 19.6 02/13/20 13:10: SARS-CoV-2 IgG Ab (Rapid) Negative, SARS-CoV-2 IgM Ab (Rapid) Negative Result diagrams: 02/13/20 13:10 02/13/20 13:10 Orders (Tests/Meds): ORDERS Category Date Time Status Covid-19 Nasal PCR ([facility]) Routine Lab 02/13/20 13:00 Ordered Medical Decision Narrative: Patient presents with dyspnea. Patient found to have saturation just below 90% on room air when EMS arrived to his facility. Patient placed on supplemental oxygen at 2 L with resolution of hypoxia. At this time, he did have a Covid swab done recently which was negative but repeat will be done and appropriate precautions will be maintained until swab results. Other differential diagnoses do include atypical ACS versus pneumonia versus cardiomyopathy versus other acute cardiopulmonary abnormality. Chest x-ray to be obtained to rule out any consolidation/infiltrate or other acute cardiopulmonary antibiotic. Basic la
[2020-02-13 12:57] VITALS: BP 125/72; PULSE 81; RESP 16; TEMP 37.2; O2SAT 97; BMI 25.8
--- NOTE | 2020-02-13 12:59 | XR_ITS ---
PROCEDURE: XR CHEST PORTABLE CLINICAL HISTORY: dyspnea COMPARISON: CR CXR1 CHEST-PORTABLE from 09/06/2016 CR CXR1 CHEST-PORTABLE from 09/07/2016 CR XR CHEST PORTABLE from 12/25/2019 FINDINGS: The cardiomediastinal silhouette and pulmonary vascularity are within normal limits. The lungs are clear without infiltrates, suspicious nodules, or pleural effusions. No acute bony abnormalities. IMPRESSION: No acute findings. Dictated by: Sherwin Turcios MD 02/13/2020 13:32 Sherwin Turcios MD in OV 02/13/2020 13:32
--- NOTE | 2020-02-13 13:16 | PC.NURSE ---
rad at bedside
[2020-02-13 13:17] VITALS: BP 125/72; PULSE 86; O2SAT 97
[2020-02-13 13:29] LABS: Eosinophils # 0.1 K/mm3 (0.0-0.4); Hematocrit 45.1 % (42.0-52.0); Hemoglobin 14.9 g/dL (14.1-18.0); Lymphocytes # 1.8 K/mm3 (0.7-4.5); Lymphocytes % 39.9 % (10-50); Mean Corpuscular HGB Conc 32.9 g/dL (31.8-35.4); Mean Corpuscular Hemoglobin 31.8 pg (27.0-31.2); Mean Corpuscular Volume 96.7 fl (80-94); Mean Platelet Volume 7.7 fl (7.4-10.4); Monocytes # 0.3 K/mm3 (0.1-1.0); Monocytes % 6.9 % (1.7-9.3); Neutrophils # 2.3 K/mm3 (1.8-7.8); Neutrophils % 51.2 % (37.0-80.0); Platelet Count 317 K/mm3 (142-424); Red Blood Count 4.66 M/mm3 (4.60-6.20); Red Cell Distribution Width 13.6 % (11.5-17.5); White Blood Count 4.4 K/mm3 (4.8-10.8)
[2020-02-13 13:34] VITALS: BP 119/68; PULSE 85; O2SAT 97
[2020-02-13 13:43] LABS: Chloride 107 mmol/L (98-107); Potassium 3.8 mmoL/L (3.5-5.1); Sodium 143 mmol/L (136-145)
[2020-02-13 13:46] LABS: Anion Gap 10.8 mEq/L (5-15); Blood Urea Nitrogen 18 mg/dl (9-20); Calcium 8.4 mg/dl (8.4-10.2); Carbon Dioxide 29 mmol/L (22.0-30.0); Creatinine Clearance Estimated 77 mL/min (50-200); Estimated Glomerular Filt Rate 112 ml/min (>60); GFR (African American) 136 ML/MIN (>60); Glucose 115 mg/dl (74-100)
--- NOTE | 2020-02-13 13:54 | ECG_ITS ---
APPROVED REPORT Exam: Resting ECG HR:88 bpm ECG Measurements Heart Rate 88 AXES PA 140 P 76 QRSd 70 QRS 71 QT 340 T 87 QTc 411 Conclusion Normal sinus rhythm Low voltage QRS Borderline ECG Electronically signed by : Ric Meyers, 02/14/2020 11:57:50
[2020-02-13 13:56] LABS: NT Pro Brain Natriuretic Pep. 19.6 pg/mL (0-125)
[2020-02-13 13:59] LABS: Troponin I < 0.01 ng/ml (0.00-0.034)
[2020-02-13 14:14] VITALS: BP 129/74; PULSE 76; O2SAT 98
[2020-02-13 14:43] LABS: Coronavirus 19 IgG Antibody Negative (Negative); Coronavirus 19 IgM Antibody Negative (Negative)
[2020-02-13 15:34] VITALS: BP 120/64; PULSE 88; O2SAT 96
[2020-02-13 17:17] VITALS: BP 122/60; PULSE 70; RESP 16; TEMP 36.9; O2SAT 98
== END 2020-02-13 17:18 ==
PROVIDERS: Emergency Provider Emergency Medicine
DX: J44.1 Chronic obstructive pulmonary disease with (acute) exacerbation (principal); Z01.84 Encounter for antibody response examination; I25.10 Atherosclerotic heart disease of native coronary artery without angina pectoris; Z86.73 Personal history of transient ischemic attack (TIA), and cerebral infarction without residual deficits; K21.9 Gastro-esophageal reflux disease without esophagitis; E78.5 Hyperlipidemia, unspecified; G40.909 Epilepsy, unspecified, not intractable, without status epilepticus; Z79.899 Other long term (current) drug therapy
CPT/HCPCS: 71045; 80048; 83880; 84484; 85025; 86328; 93005; 99284

== ENCOUNTER 2021-06-23 10:11 | Emergency (ER) | payer MEDICARE, MEDICAID, SELFPAY ==
[2021-06-23] VITALS (8 sets, daily range): BP systolic 108–145; BP diastolic 64–78; PULSE 70–94; RESP 15–22; TEMP 36.9; O2SAT 90–98
[2021-06-23 10:17] LABS: Coronavirus 19, PCR Not Detected (NotDetected); Influenza A, PCR Not Detected (NotDetected); Influenza B, PCR Not Detected (NotDetected)
--- NOTE | 2021-06-23 10:21 | XR_ITS ---
FINAL REPORT CLINICAL HISTORY: FX TIBIA, fall, bruising noted FINDINGS: Two views of the right tibia-fibula were obtained. The bones are osteopenic. There is an oblique nondisplaced fracture through the proximal tibial metaphysis. There are transversely oriented wires of the proximal tibial plateau. There is a minimally displaced fracture of the fibular head. IMPRESSION: Fractures of the proximal tibial metaphysis and fibular head. Reviewed, Interpreted and Dictated by Dmitry Bermudez MD Transcribed by Da Lynn Authenticated by Dmitry Bermudez MD on 06/23/2021 12:16:08 PM [facility]
--- NOTE | 2021-06-23 10:22 | XR_ITS ---
FINAL REPORT CLINICAL HISTORY: FALL FINDINGS: 2 views of the right hip and an AP pelvis were obtained. The bones are osteopenic. There is no acute fracture or dislocation. The joint spaces are intact. There are no soft tissue abnormalities. IMPRESSION: No acute process. Reviewed, Interpreted and Dictated by Dimtry Bermudez MD Transcribed by Da Lynn Authenticated by Dmitry Bermudez MD on 06/23/2021 12:16:[address] [facility]
--- NOTE | 2021-06-23 10:23 | XR_ITS ---
FINAL REPORT CLINICAL HISTORY: COUGH, fall COMPARISON: December 25, 2019 FINDINGS: The heart size is normal. The mediastinum is normal. There is no focal infiltrate or edema. There are no pleural effusions. There is no pneumothorax. There is no osseous abnormality. IMPRESSION: No acute cardiopulmonary process Reviewed, Interpreted and Dictated by Dmitry Bermudez MD Transcribed by Da Lynn Authenticated by Dmitry Bermudez MD on 06/23/2021 12:16:02 PM [facility]
--- NOTE | 2021-06-23 10:30 | PC.NURSE ---
pt daughter at BS
--- NOTE | 2021-06-23 10:49 | PC.NURSE ---
ED MD at
--- NOTE | 2021-06-23 11:02 | CT_ITS ---
FINAL REPORT TECHNIQUE: Axial images were obtained of the cervical spine by computed tomography. Coronal and sagittal reconstruction process performed. This study was performed with techniques to keep radiation doses as low as reasonably achievable (ALARA). Individualized dose reduction techniques using automated exposure control or adjustment of mA and/or kV according to the patient''s size were employed. CLINICAL HISTORY: fall, unwitnessed, neck pain FINDINGS: Cervical vertebrae show normal height. There is mild narrowing of the disc spaces. There is no malalignment. The facets are properly aligned. IMPRESSION: No fracture. Reviewed, Interpreted and Dictated by Dmitry Bermudez MD Transcribed by Da Lynn Authenticated by Dmitry Bermudez MD on 06/23/2021 12:16:03 PM [facility]
--- NOTE | 2021-06-23 11:03 | XR_ITS ---
FINAL REPORT CLINICAL HISTORY: fall, trauma, unwitnessed FINDINGS: Multiple views of the right femur were obtained. There are linear metallic densities projecting over the distal femur. The bones are osteopenic. There is no acute fracture or dislocation. Visualized joint spaces are intact. There is no acute soft tissue abnormality. IMPRESSION: No acute femur fracture. Reviewed, Interpreted and Dictated by Dmitry Bermudez MD Transcribed by Da Lynn Authenticated by Dmitry Bermudez MD on 06/23/2021 12:16:05 PM [facility]
--- NOTE | 2021-06-23 11:03 | XR_ITS ---
FINAL REPORT CLINICAL HISTORY: fall, unwitnessed FINDINGS: 3 views of the right knee were obtained. The bones are osteopenic. There is an oblique nondisplaced fracture through the proximal tibial metaphysis. There are transversely oriented wires of the proximal tibial plateau. There is a minimally displaced fracture of the fibular head. IMPRESSION: Fractures of the proximal tibial metaphysis and fibular head. Reviewed, Interpreted and Dictated by Dmitry Bermudez MD Transcribed by Da Lynn Authenticated by Dmitry Bermudez MD on 06/23/2021 12:16:[address] [facility]
--- NOTE | 2021-06-23 11:04 | CT_ITS ---
FINAL REPORT TECHNIQUE: Axial images were performed through the lumbar spine by computed tomography. Sagittal reconstruction images were also performed. This study was performed with techniques to keep radiation doses as low as reasonably achievable, (ALARA). Individualized dose reduction techniques using automated exposure control or adjustment of mA and/or kV according to the patient's size were employed. CLINICAL HISTORY: fall, unwitnessed FINDINGS: Sagittal reconstruction images demonstrate no subluxation. There is moderate disc space narrowing at L2-L3 and L3-L4. There is moderate left neural foraminal narrowing at L2-L3 and moderate right neural foraminal narrowing at L3-L4. There is moderate to high-grade right neural foraminal narrowing at L4-L5.. IMPRESSION: No acute fracture. Reviewed, Interpreted and Dictated by Dmitry Bermudez MD Transcribed by Da Lynn Authenticated by Dmitry Bermudez MD on 06/23/2021 12:16:04 PM [facility]
--- NOTE | 2021-06-23 11:04 | CT_ITS ---
FINAL REPORT TECHNIQUE: Axial CT images of the thoracic spine were obtained without contrast. Sagittal and coronal reformatted images were also obtained. This study was performed with techniques to keep radiation doses as low as reasonably achievable (ALARA). Individualized dose reduction techniques using automated exposure control or adjustment of mA and/or kV according to the patient's size were employed. CLINICAL HISTORY: fall, unwitnessed FINDINGS: There is mild loss of height of a lower thoracic vertebrae presumed to be T9. No discrete fracture line is identified. There are mild hypertrophic changes in the lower thoracic spine. The vertebral alignment is normal. There is no evidence of significant canal stenosis. No paraspinous soft tissue abnormality is identified. An 8 mm noncalcified nodule is seen in the posterior left lower lobe on image 80 of series 3. IMPRESSION: Mild loss of height of a lower thoracic vertebrae presumed to be T9 of approximately 10-20%. Consider correlative MRI. Noncalcified posterior left lower lobe nodule. Dedicated chest CT may be of value. Reviewed, Interpreted and Dictated by Dmitry Bermudez MD Transcribed by Da Lynn Authenticated by Dmitry Bermudez MD on 06/23/2021 12:16:04 PM [facility]
--- NOTE | 2021-06-23 11:14 | CT_ITS ---
FINAL REPORT TECHNIQUE: Axial imaging of the head was obtained without contrast. This study was performed with techniques to keep radiation doses as low as reasonably achievable, (ALARA). Individualized dose reduction techniques using automated exposure control or adjustment of mA and/or kV according to the patient''s size were employed. 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 There is ex vacuo dilatation of the left lateral ventricle. There is moderate enlargement of the right ventricle. There is no evidence of hemorrhage. No masses are identified. No extra-axial fluid is seen. The sinuses are normal. There is no acute osseous abnormality. IMPRESSION: No acute intracranial abnormality. Reviewed, Interpreted and Dictated by Dmitry Bermudez MD Transcribed by Da Lynn Authenticated by Dmitry Bermudez MD on 06/23/2021 12:16:07 PM [facility]
--- NOTE | 2021-06-23 11:30 | PC.NURSE ---
patient in CT at this time
--- NOTE | 2021-06-23 11:40 | PC.NURSE ---
patient back from CT by stretcher with [employer]
--- NOTE | 2021-06-23 11:48 | PC.NURSE ---
PETERSON Martinez at
--- NOTE | 2021-06-23 11:54 | PC.NURSE ---
Daughter back at
[2021-06-23 12:08] LABS: Basophils % 0.6 % (0.1-2.0); Eosinophils # 0.3 K/mm3 (0.0-0.4); Eosinophils % 3.9 % (0.1-12.0); Hematocrit 42.3 % (42.0-52.0); Hemoglobin 14.2 g/dL (14.1-18.0); Lymphocytes # 2.2 K/mm3 (0.7-4.5); Lymphocytes % 29.5 % (10-50); Mean Corpuscular HGB Conc 33.7 g/dL (31.8-35.4); Mean Corpuscular Hemoglobin 32.5 pg (27.0-31.2); Mean Corpuscular Volume 96.4 fl (80-94); Monocytes # 0.7 K/mm3 (0.1-1.0); Monocytes % 9.8 % (1.7-9.3); Neutrophils # 4.2 K/mm3 (1.8-7.8); Neutrophils % 56.2 % (37.0-80.0); Platelet Count 280 K/mm3 (142-424); Red Blood Count 4.39 M/mm3 (4.60-6.20); Red Cell Distribution Width 13.7 % (11.5-17.5); White Blood Count 7.4 K/mm3 (4.8-10.8)
[2021-06-23 12:12] LABS: Chloride 109 mmol/L (98-107); Potassium 4.9 mmoL/L (3.5-5.1)
[2021-06-23 12:13] LABS: Sodium 140 mmol/L (136-145)
[2021-06-23 12:14] LABS: Blood Urea Nitrogen 17 mg/dl (9-20); Creatinine Clearance Estimated 63 mL/min (50-200); Estimated Glomerular Filt Rate 134 ml/min (>60); GFR (African American) 162 ML/MIN (>60)
[2021-06-23 12:15] LABS: Alanine Aminotransferase 31 U/L (12-78); Albumin Level 3.4 g/dl (3.5-5.0); Albumin/Globulin Ratio 0.9 (1.1-1.8); Alkaline Phosphatase 50 U/L (38-126); Anion Gap 6.9 mEq/L (5-15); Aspartate Amino Transferase 62 U/L (17-59); Bilirubin,Total 0.7 mg/dl (0.2-1.3); Calcium 8.7 mg/dl (8.4-10.2); Carbon Dioxide 29 mmol/L (22.0-30.0); Globulin 3.8 g/dL (1.3-3.2); Glucose 103 mg/dl (74-100); Total Protein,Serum 7.2 g/dl (6.3-8.2)
[2021-06-23 12:19] LABS: C-Reactive Protein 43.4 mg/L (0-4)
[2021-06-23 12:28] LABS: Troponin I 0.03 ng/ml (0.00-0.034)
--- NOTE | 2021-06-23 13:21 | PC.NURSE ---
patient placed on 2 liters of 02 due to sats dropping to 85%
--- NOTE | 2021-06-23 13:22 | PC.NURSE ---
patients 02 up to 92% on 2L
--- NOTE | 2021-06-23 13:43 | PC.NURSE ---
Updated family on POC
--- NOTE | 2021-06-23 14:31 | [facility].EDGENADL ---
ED Disposition Clinical Impression: Tibia/fibula fracture Qualifiers: Encounter type: initial encounter Fracture type: closed Laterality: right Qualified Code(s): S82.201A - Unspecified fracture of shaft of right tibia, initial encounter for closed fracture; S82.401A - Unspecified fracture of shaft of right fibula, initial encounter for closed fracture Disposition: Home, Self-Care Condition on Discharge: Good Additional Instructions: Please ensure that the patient is not weightbearing on either extremity. Continue to monitor patient closely for falls. Patient will need an orthopedic follow-up within the week with Dr. Mederos. Additionally, please have patient be seen by his primary care physician, Dr. Mesa for further CT imaging and work-up of pulmonary nodule on the left lower lobe. Referrals: Provider,Referral, [Primary Care Provider] - - Critical Care Critical Care Time: No Attestation: On 06/23/21, the high probability of a clinically significant, sudden or life threatening deterioration of the following system(s) required my full and direct attention, intervention and personal management. The time I documented below is in addition to time spent performing reported procedures but includes the following listed in this critical care notation. Medical Decision Making - Medical Records Medical records reviewed: Yes: I reviewed the patient's medical records. - Eduardo Inquiry Pt receiving controlled substance: No Vital Signs: 06/23/21 10:01 06/23/21 10:52 06/23/21 11:04 Temperature 98.4 F Temperature Source Rectal Pulse Rate 94 H 82 Pulse Rate [Radial] 88 Respiratory Rate 22 20 Blood Pressure 131/68 108/69 L Blood Pressure [Right Radial Artery] 145/78 H Blood Pressure Mean [Right Radial Artery] 100 Blood Pressure Source Automatic Cuff Automatic Cuff Blood Pressure Position Sitting Sitting Blood Pressure Position [Right Radial Artery] Sitting 02 Sat by Pulse Oximetry 98 93 L 92 L Oxygen Delivery Method Room Air Nasal Cannula Nasal Cannula Oxygen Flow Rate (LPM) 2 2 06/23/21 12:29 06/23/21 13:13 06/23/21 14:10 Temperature Temperature Source Pulse Rate 70 75 77 Pulse Rate [Radial] Respiratory Rate 17 22 15 Blood Pressure 122/64 122/74 120/75 Blood Pressure [Right Radial Artery] Blood Pressure Mean [Right Radial Artery] Blood Pressure Source Automatic Cuff Automatic Cuff Automatic Cuff Blood Pressure Position Sitting Sitting Sitting Blood Pressure Position [Right Radial Artery] 02 Sat by Pulse Oximetry 93 L 90 L 98 Oxygen Delivery Method Room Air Room Air Nasal Cannula Oxygen Flow Rate (LPM) 2 06/23/21 15:27 Temperature Temperature Source Pulse Rate 73 Pulse Rate [Radial] Respiratory Rate 22 Blood Pressure 138/69 Blood Pressure [Right Radial Artery] Blood Pressure Mean [Right Radial Artery] Blood Pressure Source Automatic Cuff Blood Pressure Position Sitting Blood Pressure Position [Right Radial Artery] 02 Sat by Pulse Oximetry 94 L Oxygen Delivery Method Nasal Cannula Oxygen Flow Rate (LPM) 2 - Lab Data Lab results reviewed: Yes: I reviewed the patient's lab results. Lab Results 06/23/21 10:13: SARS-CoV-2 (PCR) Not detected, Influenza A Untype (PCR) Not detected, Influenza Type B (PCR) Not detected 06/23/21 12:00: WBC 7.4, RBC 4.39 L, Hgb 14.2, Hct 42.3, MCV 96.4 H, MCH 32.5 H, MCHC 33.7, RDW 13.7, Plt Count 280, MPV 9.0, Neut % (Auto) 56.2, Lymph % (Auto) 29.5, [place] % (Auto) 9.8 H, Eos % (Auto) 3.9, Baso % (Auto) 0.6, Neut # (Auto) 4.2, Lymph # (Auto) 2.2, [place] # (Auto) 0.7, Eos # (Auto) 0.3, Baso # (Auto) 0.0 06/23/21 12:00: Magnesium 2.0, Troponin I 0.03, C-Reactive Protein 43.4 H 06/23/21 12:00: Lactate 1.0 06/23/21 12:00: Sodium 140, Potassium 4.9, Chloride 109 H, Carbon Dioxide 29, Anion Gap 6.9, BUN 17, Creatinine 0.60 L, Estimated Creat Clear 63, Estimated GFR 134, Est GFR ( Amer) 162, Glucose 103 H, Calcium 8.7, Total Bilirubin 0.7, A
--- NOTE | 2021-06-23 14:44 | PC.NURSE ---
CALLED [facility]TH[facility] FOR CONSULT. MD IN SURGERY AND WILL RETURN CALL
--- NOTE | 2021-06-23 15:13 | PC.NURSE ---
Splinted patient with orthoglass; long leg splint. Patient tolerated well. Instructions of splint will be giving to [place] when report is called. All questions were answered for daughter.
--- NOTE | 2021-06-23 15:51 | PC.NURSE ---
[facility] contacted [facility] to transport pt back to [facility]. [facility] states they can transport pt and will be here in approx 30 mins
--- NOTE | 2021-06-23 16:12 | PC.NURSE ---
PETERSON Martinez at
== END 2021-06-23 16:32 | disposition home or self-care (01) ==
PROVIDERS: Emergency Provider Emergency Medicine
DX: S82.401A Unspecified fracture of shaft of right fibula, initial encounter for closed fracture (principal); W01.0XXA Fall on same level from slipping, tripping and stumbling without subsequent striking against object, initial encounter; Y92.122 Bedroom in nursing home as the place of occurrence of the external cause; R91.1 Solitary pulmonary nodule; F41.9 Anxiety disorder, unspecified; J44.9 Chronic obstructive pulmonary disease, unspecified; I25.10 Atherosclerotic heart disease of native coronary artery without angina pectoris; K21.9 Gastro-esophageal reflux disease without esophagitis; E78.5 Hyperlipidemia, unspecified
CPT/HCPCS: 29505; 70450; 71045; 72125; 72128; 72131; 73502; 73552; 73562; 73590; 80053; 83605; 83735; 84484; 85025; 86140; 96374; 99284; C9803; U0003; U0005